=== PATIENT | male | born 1990 | race Caucasian/White ===

== ENCOUNTER 2018-06-23 01:05 | Emergency (ER) | payer MEDICAID ==
[~2018-06-23] VITALS: Ht 182.9 cm; Wt 120.2 kg
[2018-06-23] MEDS ORDERED: Bactrim 400-801 EACH PO (02:26)
== END 2018-06-23 02:44 | disposition home or self-care (01) ==
LOC: ER 01:05
DX: L02.214 Cutaneous abscess of groin (principal); F17.210 Nicotine dependence, cigarettes, uncomplicated; E11.9 Type 2 diabetes mellitus without complications; I10 Essential (primary) hypertension
CPT/HCPCS: 10060; 99283-25

== ENCOUNTER 2019-05-01 21:32 | Emergency (ER) | payer OTHER ==
[~2019-05-01] VITALS: Ht 182.9 cm; Wt 114.3 kg
[~2019-05-01 21:32] MED LIST: Bactrim 400-801 EACH PO
[2019-05-01] MEDS ORDERED: Bactrim Ds Tab1 EACH PO (23:05)
[2019-05-01] MEDS ORDERED: Norco 5-325 Ta1 EACH PO (23:14)
== END 2019-05-01 23:16 | disposition home or self-care (01) ==
LOC: ER 21:32
DX: N49.2 Inflammatory disorders of scrotum (principal); E11.9 Type 2 diabetes mellitus without complications; I10 Essential (primary) hypertension; F17.200 Nicotine dependence, unspecified, uncomplicated
CPT/HCPCS: 55100; 99283-25; A9270-GY

== ENCOUNTER 2022-05-21 03:31 | Inpatient (IN) | payer OTHER ==
[~2022-05-21] VITALS: Ht 182.9 cm; Wt 106.6 kg
[~2022-05-21 03:31] MED LIST changes: +Bactrim Ds Tab1 EACH PO; +Monodox100 MG PO; +Norco 5-325 Ta1 EACH PO
[2022-05-21 04:15] LABS: Calcium, Ionized (POC) 1.12 mmol/L (1.10-1.46); Chloride (POC) 96 mmol/L (98-108); Creatinine (POC) 0.6 mg/dL (0.8-1.3); Glucose (ISTAT POC) 391 mg/dL (70-99); Potassium (POC) 3.1 mmol/L (3.5-5.5); Sodium (POC) 131 mmol/L (135-148); Total CO2 (POC) 22 mmol/L (21-32)
[2022-05-21 04:42] LABS: Hemoglobin 15.7 g/dL (13.5-17.5); Mean Corpuscular HGB 28.6 pg (26.0-34.0); Mean Corpuscular HGB Conc 33.4 g/dL (31.5-36.5); Mean Corpuscular Volume 86 fL (80-100); Mean Platelet Volume 10.8 fL (9.1-12.4); Platelet Count 388 K/mm3 (150-400); RDW Coefficient Variation 12.8 % (11.7-14.2); RDW Standard Deviation 39.6 fL (35.1-46.3); Red Blood Cell Count 5.49 M/mm3 (4.30-5.90); White Blood Cell Count 33.15 K/mm3 (4.00-11.30)
[2022-05-21 05:02] LABS: International Normalized Ratio 0.98; Prothrombin Time Results 10.3 Sec (9.7-11.5)
[2022-05-21 05:03] LABS: Albumin, Blood 3.7 g/dL (3.4-5.0); Albumin/Globulin Ratio 1.2 (0.8-1.8); Bilirubin, Total 0.8 mg/dL (0.1-1.0); Bun/Creatinine Ratio 25.8 (12.0-20.0); Calcium, Blood 8.8 mg/dL (8.5-10.1); Creatinine, Blood 0.62 mg/dL (0.60-1.20); Potassium, Blood 3.1 mmol/L (3.5-5.5); Total Protein, Blood 6.7 g/dL (6.4-8.2)
[2022-05-21 05:53] LABS: BAND PERCENT MAN 3 % (0-8); BASOPHILS ABSOLUTE MAN 0.33 K/mm3 (0.00-0.23); BASOPHILS PERCENT MAN 1 % (0-2); EOSINOPHILS ABSOLUTE MAN 0.66 K/mm3 (0.00-0.68); EOSINOPHILS PERCENT MAN 2 % (0-6); LYMPHOCYTES PERCENT MAN 16 % (21-46); MONOCYTES ABSOLUTE MAN 1.98 K/mm3 (0.16-1.47); MONOCYTES PERCENT MAN 6 % (4-13); NEUTROPHILS ABSOLUTE MAN 24.86 K/mm3 (1.96-9.15); SEG NEUTROPHILS PERCENT MAN 72 % (41-73); TOTAL CELLS COUNTED 100
--- NOTE | 2022-05-21 07:20 | NUR ---
assume care PT ARRIVED TO ICU AT 557 FROM [employer] S/P STENT PLACEMENT IN [place] LAD. TR BAND ON RIGHT RADIAL WITH 12 ML AIR. PULSES STRONG IN ALL FOUR EXTREMITIES. CAP REFILL <[address] MCCORMACK CAN START RELEASING AT 0830. SITE WNL. PT A&OX4. NO NUMBNESS/TINGLING, HEADACHE OR VISION CHANGES. LUNG SOUNDS CLEAR AND PT ON 4 L NC SATTING >92%. PT ABDOMEN SOFT WITHOUT TENDERNESS AND NORMOACTIVE BOWEL SOUNDS APPRECIATED. SCROTUM HAS EVIDENCE OF SCANT EDEMA WITH REDNESS THAT EXTENDS TO GROIN. FULL STRENGTH ALL FOUR EXTREMITIES.
--- NOTE | 2022-05-21 07:30 | NUR ---
ASSUMED CARE: PT RESTING IN BED, TECH PERFORMING EKG AT THIS TIME. PT NSR WITH SOME ST ELEVATION NOTED ON TELE, EKG STILL READS STEMI. DR MCCORMACK AT BEDSIDE AND ADVISES FOR MEDS TO BE GIVEN AT THIS TIME AND FLUIDS TO BE STARTED SOON ABLE. PT ALERT AND ORIENTED, COOPERATIVE, STATES SOME CHEST ACHING BUT NOT PAIN THAT BROUGHT HIM INTO HOSPITAL. 4L O2 VIA NC AT THIS TIME. TR BAND TO RIGHT WRIST WITHOUT SIGNS OF BLEEDING, BRUISING, OR SWELLING. INSULIN GTT STARTED AT 3 UNITS/HR FOR CBG AT 311. ORDERS TO REDUCE CBG TO 220 THEN GIVE LANTUS. IVF NOT AVAILABLE AT THIS TIME. WILL HANG WHEN RECIEVED. NO FURTHER NEEDS OR CONCERNS AT THIS TIME.
[2022-05-21 07:35] LABS: CHOL/HDL RATIO 5.6; CPK Creatine Kinase 84 U/L (39-308); Cholesterol 178 mg/dL (50-200); HDL Cholesterol 32 mg/dL (>39); LDL/HDL RATIO 3.2; Low Density Lipoprotein Chol 103 mg/dL (0-110); Triglycerides 217 mg/dL (30-140); Very Low Density Lipoprot Chol 43 mg/dL (6-28)
--- NOTE | 2022-05-21 10:50 | NUR ---
PT C/O CHEST PAIN THAT HE STATES IS MORE MUSCULAR. STATES THAT THE FENTANYL HELPS FOR A SHORT TIME. CALL TO DR MOFFETT TO EXPLAIN THIS AND DR MILAGROS MORGAN TO AID WITH MUSCLE PAIN.
--- NOTE | 2022-05-21 13:20 | NUR ---
TR BAND REMOVED WITHOUT SIGN OF BLEEDING, SWELLING OR HEMATOMA
--- NOTE | 2022-05-21 17:23 | NUR ---
DR MCCORMACK HERE TO SEE PT AND IS AWARE OF PT'S RUN OV VTACH AND C/O CHEST DISCOMFORT. STATES PT WILL REMAIN ICU STATUS FOR TONIGHT. WOOL BROKER AWARE. CHANGED MEDICATION ORDERS TO FINE TUNE BP DUE TO HYPERTENSIVE DIASTOLIC PRESSURES.
--- NOTE | 2022-05-21 17:28 | NUR ---
PT'S MOTHER CALLED STAFF TO BEDSIDE DUE TO PT VOMITING. PT STATES SUDDEN WAVE OF NAUSEA BUT STILL WANTS TO EAT DINNER. DR MCCORMACK AWARE OF PT'S CBGS AND NEW NAUSEA. DR REAVES ORDERED ANTIEMETIC.
--- NOTE | 2022-05-21 18:54 | NUR ---
PT C/O CHANGE IN CHEST PAIN. STATES IT FEELS LIKE LUNG PAIN. MONITOR ALARMING FOR EKG CHANGES. EKG PERFORMED WITH ST ELEVATION CHANGES OF 1 SMALL BLOCK IN MULTIPLE LEADS. CALL TO DR MCCORMACK WHO CAME TO SEE PT. FEELS PT IS HAVING A PERICARDITIS AND INSTRUCTS FOR TORADOL. ALSO INSTRUCTS TO NOTIFY HIM IF PAIN IS UNCONTROLLED BY TORADOL. WILL MEDICATE WHEN MED AVAILABLE
[2022-05-21 19:12] LABS: Calcium, Blood 8.5 mg/dL (8.5-10.1); Creatinine, Blood 0.39 mg/dL (0.60-1.20); Potassium, Blood 3.8 mmol/L (3.5-5.5)
[2022-05-22 03:51] LABS: BASOPHILS ABSOLUTE AUTO 0.04 K/mm3 (0.00-0.23); BASOPHILS PERCENT AUTO 0 % (0-2); EOSINOPHILS ABSOLUTE AUTO 0.14 K/mm3 (0.00-0.68); EOSINOPHILS PERCENT AUTO 1 % (0-6); Hematocrit 42.2 % (37.0-53.0); Hemoglobin 14.8 g/dL (13.5-17.5); IMMATURE GRAN PERCENT AUTO 1 % (0-1); LYMPHOCYTES ABSOLUTE AUTO 3.34 K/mm3 (0.84-5.20); LYMPHOCYTES PERCENT AUTO 18 % (21-46); MONOCYTES PERCENT AUTO 11 % (4-13); Mean Corpuscular HGB 29.3 pg (26.0-34.0); Mean Corpuscular HGB Conc 35.1 g/dL (31.5-36.5); Mean Corpuscular Volume 84 fL (80-100); Mean Platelet Volume 10.3 fL (9.1-12.4); NEUTROPHILS ABSOLUTE AUTO 13.21 K/mm3 (1.96-9.15); NEUTROPHILS PERCENT AUTO 70 % (41-73); Platelet Count 275 K/mm3 (150-400); RDW Coefficient Variation 12.9 % (11.7-14.2); RDW Standard Deviation 39.3 fL (35.1-46.3); Red Blood Cell Count 5.05 M/mm3 (4.30-5.90); White Blood Cell Count 18.83 K/mm3 (4.00-11.30)
[2022-05-22 04:44] LABS: Bun/Creatinine Ratio 22.5 (12.0-20.0); Calcium, Blood 8.5 mg/dL (8.5-10.1); Creatinine, Blood 0.44 mg/dL (0.60-1.20); Potassium, Blood 3.9 mmol/L (3.5-5.5)
--- NOTE | 2022-05-22 06:28 | NUR ---
SHIFT SUMMARY: NEURO: PATIENT ALERT AND ORIENTED THROUGHOUT SHIFT. SLEEPING BETWEEN CARE. NO DEFICITS NOTED. CARDIAC: SR/ST ON MONITOR WITH SIGNIFICANT ST ELEVATION IN MULTIPLE LEADS. AM EKG OBTAINED WITH NO OBSERVABLE CHANGES FROM PREVIOUS. TEMP 99 OVERNIGHT. PATIENT COMPLAINED OF CHEST PAIN ONE TIME WHICH WAS RELEIVED BY PRN TORADOL. RESP: LUNGS CLEAR ON ROOM AIR. GI: WNL : WNL SKIN: INTACT AND DRY BUT PALE OTHER: PATIENT ABLE TO AMBULATE INDEPENDENTLY WITHOUT DISCOMFORT
--- NOTE | 2022-05-22 09:04 | NUR ---
ASSUMED CARE REPORT FROM SHEREEN SANCHEZ AT 0700. PT INDEPENDENT IN ROOM. PT A&OX 4. DENIES CHEST PAIN, SOB OR OTHER SYMPTOMS. STATES HE IS FEELING BACK TO BASELINE. SR ON MONITOR, RATE 90-100'S. BP STABLE. EKG SHOWS ST ELEVATION, SIMILAR TO PREVIOUS EKG. PENDING ECHO THIS AM. RIGHT RADIAL ACCESS SITE WNL. ARMBOARD IN PLACE. WILL CONTINUE TO MONITOR.
--- NOTE | 2022-05-22 13:20 | NUR ---
Pt. is awake in bed and welcomes my visit. Spouse is present. Pt. is pleasant, but displays evidence of some anxiety about the long-term impact of his diagnosis. Listen with empathy and a calming presence. Establish rapport. Pt. verbalizes that he anticipates discharge home later today. Prayed for Pt. both Pt. and spouse verbalized gratitude for the spiritual care visit.
--- NOTE | 2022-05-22 18:02 | NUR ---
SHIFT SUMMARY NO ACUTE CHANGES THIS SHIFT. STATUS CHANGED TO PCU. ECHO COMPLETED. PT DENIES CHEST PAIN ENTIRE SHIFT. ALSO DENIES OTHER SYMPTOMS. INDEPENDENT IN ROOM. SR, RATE 90'S. BP STABLE. RIGHT RADIAL ACCESS SITE WNL. WILL CONTINUE TO MONITOR UNTIL REPORT TO ONCOMING NURSE.
--- NOTE | 2022-05-23 01:42 | NUR ---
PT XFER T/MED FLOOR/ASSUMED CARE PT ARRIVED T/MED FLOOR IN WHEELCHAIR AT 2140; RCVD REPORT F/[facility] ICU BY PHONE BEFORE XFER. A/OX4; XFERD T/BED INDEPENDENTLY. PLEASANT AND COOPERATIVE. VITALS TAKEN; SBP IN 90'S; WILL CONT T/MONITOR. NO IV ACCESS. ON TELE; BJORN MARISCAL VERIFIED SINUS TACH, 101 BPM. RT RADIAL ACCESS SITE WNL; TRANSPARENT DRESSING STILL IN PLACE. PT DENIES CHEST PAIN/PRESSURE. ORIENTED TO ROOM; CALL LIGHT IN REACH.
[2022-05-23 06:47] LABS: BASOPHILS ABSOLUTE AUTO 0.05 K/mm3 (0.00-0.23); BASOPHILS PERCENT AUTO 0 % (0-2); EOSINOPHILS ABSOLUTE AUTO 0.23 K/mm3 (0.00-0.68); EOSINOPHILS PERCENT AUTO 2 % (0-6); Hematocrit 40.5 % (37.0-53.0); Hemoglobin 13.7 g/dL (13.5-17.5); IMMATURE GRAN ABSOLUTE AUTO 0.07 K/mm3 (0.00-0.10); IMMATURE GRAN PERCENT AUTO 1 % (0-1); LYMPHOCYTES ABSOLUTE AUTO 4.22 K/mm3 (0.84-5.20); LYMPHOCYTES PERCENT AUTO 29 % (21-46); MONOCYTES ABSOLUTE AUTO 1.67 K/mm3 (0.16-1.47); MONOCYTES PERCENT AUTO 12 % (4-13); Mean Corpuscular HGB 28.9 pg (26.0-34.0); Mean Corpuscular HGB Conc 33.8 g/dL (31.5-36.5); Mean Corpuscular Volume 85 fL (80-100); Mean Platelet Volume 10.6 fL (9.1-12.4); NEUTROPHILS ABSOLUTE AUTO 8.13 K/mm3 (1.96-9.15); NEUTROPHILS PERCENT AUTO 57 % (41-73); Platelet Count 252 K/mm3 (150-400); Red Blood Cell Count 4.74 M/mm3 (4.30-5.90); White Blood Cell Count 14.37 K/mm3 (4.00-11.30)
[2022-05-23 07:04] LABS: Albumin, Blood 2.9 g/dL (3.4-5.0); Anion Gap 8 mmol/L (6-16); Blood Urea Nitrogen 11 mg/dL (8-24); Bun/Creatinine Ratio 18.2 (12.0-20.0); CO2, Blood 25 mmol/L (21-32); Calcium, Blood 8.8 mg/dL (8.5-10.1); Chloride, Blood 105 mmol/L (98-108); Creatinine, Blood 0.61 mg/dL (0.60-1.20); Glomerular Filtration Rate 131 (60-); Glucose, Blood 190 mg/dL (70-99); Magnesium, Blood 1.7 mg/dL (1.6-2.4); Phosphorus, Blood 3.6 mg/dL (2.5-4.9); Potassium, Blood 3.4 mmol/L (3.5-5.5); Sodium, Blood 138 mmol/L (136-145)
--- NOTE | 2022-05-23 08:38 | NUR ---
PT SITTING UP IN BED VISITING WITH HIS FAMILY, PT ABLE TO ADMINISTER HIS OWN INSULIN APPROPRIATELY, PT HOPEFUL TO DC HOME TODAY
[2022-05-23] MEDS ORDERED: SPIR25 PO (14:01)
[2022-05-23] MEDS ORDERED: BRILINTA90 M1 PO (14:01)
[2022-05-23] MEDS ORDERED: ASPI81CH PO (14:02)
[2022-05-23] MEDS ORDERED: ATOR80 PO (14:03)
[2022-05-23] MEDS ORDERED: LOSA25 PO (14:05)
[2022-05-23] MEDS ORDERED: Carvedilol12.5 MG PO (14:05)
[2022-05-23] MEDS ORDERED: HUMALOG JU100 UNIT/2 SC (14:06)
[2022-05-23] MEDS ORDERED: INSULIN GL100 UNIT/4 SC (14:07)
[2022-05-23] MEDS ORDERED: NITR.4SL SL (14:08)
--- NOTE | 2022-05-23 14:34 | NUR ---
DISCHARGE PT & FAMILY EDUCATED ON NEW MEDICATIONS AND FOLLOW UP INCTURCTIONS/APPOINTMENTS NEEDED. PT AND PT STATE NO FURTHER NEED FOR INSTRUCTION AT THIS TIME. HARD SCRIPTS FOR MEDICAL SUPPLIES SENT WITH THE PT. MEDS FAXED TO [facility].. PRINT OUT FOR BRILLINTA COUPON GIVEN TO PT. STENT INFORMATION ALSO PUT IN DC PACKET. IV REMOVED & INTACT. POTASSIUM AND MAGNESIUM SUPPLIMENTS GIVEN PRIOR TO DC ORDERED BY DR. MOFFETT. NO OTHER ACUTE CHANGES PRIOR TO DC.
--- NOTE | 2022-05-23 18:05 | NUR ---
DC MED CHANGED TO PLAVIX PT INSURANCE NEEDS A PRIOR AUTH ON THE ORDERED BRILLINTA. PT HAS NO PCP TO AUTHORIZE THIS. [facility] NOTIFIED AND DR. MAYA CHANGED ORDER TO PLAVIX 600MG X1 TONIGHT AND THEN 75MG DAILY AFTERWARDS. ORDERS SENT TO PHARMACY. PT UPDATED.
== END 2022-05-23 14:47 | disposition home or self-care (01) | DRG 247 ==
LOC: ER 03:31 → ICUW 04:18 → MEDS 05-22 21:31
PROVIDERS: Emergency Medicine; Internal Medicine; ADMIT Internal Medicine Cardiovascular Disease
PROC: 027034Z Dilation of Coronary Artery, One Artery with Drug-eluting Intraluminal Device, Percutaneous Approach (ICD-10-PCS; principal; 2022-05-21)
PROC: 4A023N7 Measurement of Cardiac Sampling and Pressure, Left Heart, Percutaneous Approach (ICD-10-PCS; 2022-05-21)
PROC: B215YZZ Fluoroscopy of Left Heart using Other Contrast (ICD-10-PCS; 2022-05-21)
PROC: B211YZZ Fluoroscopy of Multiple Coronary Arteries using Other Contrast (ICD-10-PCS; 2022-05-21)
DX: I21.02 ST elevation (STEMI) myocardial infarction involving left anterior descending coronary artery (principal); I31.39 Other pericardial effusion (noninflammatory); I47.29 Other ventricular tachycardia; I50.22 Chronic systolic (congestive) heart failure; E66.01 Morbid (severe) obesity due to excess calories; Z68.31 Body mass index [BMI] 31.0-31.9, adult; E78.5 Hyperlipidemia, unspecified; I25.5 Ischemic cardiomyopathy; I11.0 Hypertensive heart disease with heart failure; E11.65 Type 2 diabetes mellitus with hyperglycemia; F17.210 Nicotine dependence, cigarettes, uncomplicated; Z79.2 Long term (current) use of antibiotics
CPT/HCPCS: 36415; 71045; 80047; 80048; 80053; 80061; 80069; 82550; 82947; 83036; 83735; 84484; 85014; 85025; 85347; 85610; 85730; 93005; 93010; 93458; 94762; 96374; 96375; 99152; 99153; 99291-25; A9270; C1725; C1769; C1874; C1887; C1894; C8929; C9600; J1644; J1650; J1815; J1885; J2405; J3010; J3246; J3475; J3480; J7030; J7050; Q9957; Q9967